=== PATIENT | female | born 1995 | race Caucasian/White ===

== ENCOUNTER → 2024-06-18 07:40 | Outpatient (REF) | payer BC, SELFPAY | LOC: PNTC 07:40 | PROVIDERS: ATTENDING PHYSICIAN Obstetrics & Gynecology | DX: Z36.0 Encounter for antenatal screening for chromosomal anomalies (principal); Z36.82 Encounter for antenatal screening for nuchal translucency; O09.811 Supervision of pregnancy resulting from assisted reproductive technology, first trimester | CPT/HCPCS: 76801; 76813 ==

== ENCOUNTER → 2024-10-10 08:49 | Outpatient (REF) | payer BC, SELFPAY | LOC: PNTC 08:49 | PROVIDERS: ATTENDING PHYSICIAN Obstetrics & Gynecology | DX: Z34.90 Encounter for supervision of normal pregnancy, unspecified, unspecified trimester (principal) | CPT/HCPCS: 36415; 86850; 86900; 86901; 96372; J2790 ==

== ENCOUNTER → 2024-12-04 13:21 | Outpatient (REF) | payer BC, SELFPAY | LOC: PNTC 13:21 | PROVIDERS: ATTENDING PHYSICIAN Student in an Organized Health Care Education/Training Program | DX: O09.819 Supervision of pregnancy resulting from assisted reproductive technology, unspecified trimester (principal) | CPT/HCPCS: 59025; 76815 ==

== ENCOUNTER → 2024-12-11 13:24 | Outpatient (REF) | payer BC, SELFPAY | LOC: PNTC 13:24 | PROVIDERS: ATTENDING PHYSICIAN Student in an Organized Health Care Education/Training Program | DX: O09.819 Supervision of pregnancy resulting from assisted reproductive technology, unspecified trimester (principal) | CPT/HCPCS: 59025; 76816 ==

== ENCOUNTER → 2024-12-18 14:18 | Outpatient (REF) | payer BC, SELFPAY | LOC: PNTC 14:18 | PROVIDERS: ATTENDING PHYSICIAN Student in an Organized Health Care Education/Training Program | DX: O09.819 Supervision of pregnancy resulting from assisted reproductive technology, unspecified trimester (principal) | CPT/HCPCS: 59025; 76815 ==

== ENCOUNTER → 2024-12-25 13:49 | Outpatient (REF) | payer BC, SELFPAY | LOC: PNTC 13:49 | PROVIDERS: ATTENDING PHYSICIAN Student in an Organized Health Care Education/Training Program | DX: O09.819 Supervision of pregnancy resulting from assisted reproductive technology, unspecified trimester (principal) | CPT/HCPCS: 59025; 76815 ==

== ENCOUNTER 2024-12-26 19:21 | Inpatient (IN) | payer BC, SELFPAY ==
[2024-12-26 19:50] VITALS: BP 131/88; BMI 32.0
[2024-12-26] MEDS: CYTOTEC 25 MICROGRAM VAG (20:18)
[2024-12-26 20:20] LABS: Hematocrit 31.2 % (37.0-47.0); Hemoglobin 10.7 g/dL (12.0-16.0); Mean Corp Hgb Conc. 34.3 g/dL (33.0-37.0); Mean Corpuscular Volume 90.4 fL (81.0-99.0); Nucleated Red Blood Cells % 0 %; Platelet Count 253 10^3/uL (130-400); Red Cell Dist. Width 13.9 % (11.5-14.5)
[2024-12-26] MEDS: LR 1000 IV (20:40)
[2024-12-27] MEDS: CYTOTEC PO (00:30)
[2024-12-27] MEDS: CYTOTEC 50 MICROGRAM PO (03:39)
[2024-12-27] MEDS: STADOL 1 MG IV ×2 (10:39→21:55)
[2024-12-27] MEDS: PITOCIN 30 UNITS/NSS 500 ML IV (13:19)
[2024-12-27] MEDS: LR 1000 IV (21:55)
[2024-12-28] MEDS: LR 1000 IV (21:12)
[2024-12-28] MEDS: PITOCIN 30 UNITS/NSS 500 ML IV (21:12)
[2024-12-29] MEDS: LR 1000 IV (11:54)
[2024-12-29] MEDS: FENTANYL/BUPIVACAINE 100 EPIDURAL ×2 (12:02→19:53)
[2024-12-29] MEDS: SUBLIMAZE 100 MCG EPIDURAL (12:02)
[2024-12-29] MEDS: TUMS CHEWABLE TABLET 400 MG PO (20:48)
[2024-12-30] MEDS: LR 1000 IV (00:30)
[2024-12-30] MEDS: FENTANYL/BUPIVACAINE 100 EPIDURAL ×2 (05:34→13:28)
[2024-12-30] MEDS: ZITHROMAX INFUSION 250 IV (15:37)
[2024-12-30] MEDS: BICITRA 30 ML PO ×2 (15:38)
[2024-12-30] MEDS: TYLENOL 1000 MG PO (15:38)
[2024-12-30] MEDS: ANCEF 10 IV ×2 (15:38→15:48)
[2024-12-30 16:46] LABS: Cord VBG B.E. - POC -2.5 mmol/L; Cord VBG HCO3 - POC 22 mmol/L; Cord VBG O2 Sat % - POC 42.1 %; Cord VBG pCO2 - POC 35 mmHg; Cord VBG pH - POC 7.40; Cord VBG pO2 - POC 24 mmHg
--- NOTE | 2024-12-30 17:36 | HPS.HSE ---
Family Physician
-
Family Physician: Danny Laureano
Chief Complaint
-
induction of labor
History of Present Illness
HPI: Patient is a 29yo @40.2 who presents for eIOL. She has no complaints. She denies ctx, VB or LOF. +FM
complications
- Rh negative
- IVF
PMHx: endometriosis
Meds: bASA, iron
Surghx: D&C, IVF
NKDA
Socialhx: denies tobacco, etoh or illicit drug use
Famhx: MGM lung cancer
OBHx: SABx1
labs: Aneg, Ab neg, RPR non-reactive, UCx neg, HBsAg neg, HIV neg, GCCT neg, Rubella immune, Hep C neg, 1hr 84, GBS neg
Medical History
Past Medical History
Past Medical History: Reports None
Past Surgical History: Reports Other
Social History
Tobacco: Non-smoker
Alcohol: None
Drug: None
Family History
Family History: Not pertinent
Allergies / Home Medications
Allergies reflects when Allergies were last updated in [employer]
Home Medications with original date entered in [employer]
Allergy/Medication List:
Meds: bASA, PNV
NKDA
Review of Systems
-
A 12 point ROS was completed and negative except as noted: Yes
Physical Exam
Vital Signs
Vital Signs
Temp Pulse Resp BP
98.0 F 95 18 131/88
12/26/24 19:50 12/26/24 19:50 12/26/24 19:50 12/26/24 19:50
Physical Exam
General: Well Developed and Well Nourished
HEENT: NormoCephalic
Respiratory: Non Labored Respirations
Cardiac: Regular Rhythm
Neuro: Awake and Alert
Psych: Calm
Laboratory Results
-
12/26/24 20:10
Impression/Plan
-
IMPRESSION:
Patient is a 29yo @40.5 who presented for elective IOL
PLAN:
- Cytotec 25mcg placed PV. 50mcg PO to be given q4h for a max of 6 doses. IOL process reviewed with patient and her
- cEFM/toco. Category 1 tracing on admission
--- NOTE | 2024-12-30 17:53 | OR.RPT ---
Operative Report
Operative Report
Procedure date: 12/30/2024
Preop diagnosis: IUP @40.2, IVF , non-reassuring heart tones
Postop diagnosis: same, endometriosis
Procedure: Primary low transverse section
Surgeon: Richy
Anesthesia: epidural, Bard
QBL: 1105mL
Findings: Viable male infant born at 1720, Apgars 8/9, Double nuchal, normal appearing uterus and bilateral fallopian tubes. Left ovary enlarged with endometrial implants and adherent to posterior uterus. Endometrial implants on the posterior
uterus. TXA given prophylactically prior to incision since patient has had a prolonged induction with high risk of hemorrhage
Montaño draining clear urine prior the procedure, blood tinged after delivery of the head and then clear at the end of the procedure
Complications: none
Indication: Patient is a 29yo who presented at 39.5 weeks on 12/26 for elective induction of labor. She was cl/50/-3. The induction was started with 25mcg of Cytotec placed vaginally. On the evening of 12/26, she had a prolonged deceleration.
She ultimately received one more dose of Cytotec. On the morning of 12/27, she was 1cm and blayne too much for Cytotec. A cook balloon was placed. There was another prolonged deceleration and the Cook balloon was removed. She was then started on
Pitocin. There were multiple discussions had with patient and her that while there have been decelerations, they are very far apart and the tracing was overall reassuring so it was okay to proceed with the induction process. She progressed
to 2-3cm on 12/28 but the head was not well applied and AROM was not able to be performed. She was offered to place another Cook balloon, but declined because they were worried about decelerations. On the night of 12/28, there was a Pitocin break. The
morning of 12/29, she progressed to 3cm. There was not a part palpable and ultrasound was performed and confirmed cephalic presentation. She was continued on Pitocin and got an epidural. After epidural placement, the head was well applied and
AROM was performed for clear fluid. Pitocin was turned on and off throughout the night of 12/29 for variable and late decelerations but the tracing was overall reassuring. In the morning of 12/30, she progressed to 8-9cm. She then progressed to an
anterior lip. There was another prolonged deceleration followed by variable decelerations and Pitocin was turned off. When Pitocin was turned back on, there was another prolonged deceleration and she remained an anterior lip. section was
recommend for non-reassuring heart tones. Consents were signed and anesthesia was notified.
Procedure: Patient was taken to the operating room where epidural anesthesia was bolused and found to be adequate. 2g of Ancef and 500mg of Azithromycin were given for antibiotic prophylaxis. 1g of TXA was given prophylactically given her high risk
of hemorrhage from multiple day induction. The abdomen was prepped with ChloraPrep. The patient was draped in the normal sterile fashion. She was placed in the dorsal supine position with a left lateral tilt. A Pfannenstiel incision was made with a
10 blade and carried down to the fascia with a scalpel. Hemostasis achieved with Bovie. The fascia was incised and dissected laterally with Rodriguez scissors. The superior aspect of the fascia was grasped with Cathleen clamps. The underlying rectus fascia
was sharply dissected with Rodriguez scissors. In a similar fashion the inferior aspect of the fascia was elevated with Cathleen clamps and the rectus muscle was dissected off with Rodriguez scissors. The rectus muscles were down the midline to the
level of the pubic symphysis with manual dissection. The peritoneum was bluntly entered and extended using manual traction and Rodriguez scissors.
Miranda retractor and bladder blade were placed revealing good visualization of the bladder. The vesicouterine peritoneum was identified. A very thin lower uterine segment was noted. The lower uterine segment was incised with a scalpel. Clear
amniotic fluid at entry into the uterine cavity. The uterine incision was extended bluntly with lateral and upward traction.
The fetus was in cephalic presentation. The head was elevated out of the pelvis with special attention paid to avoid using the uterine incision as a fulcrum. Gentle fundal pressure was applied once the head was brought to the incision. The head
delivered through the hysterotomy. The rest of the delivered without difficulty. Delayed cord clamping was not performed per neonatology. The infant was handed off to the mash preparatory operator. IV oxytocin was started to facilitate uterine
contractions. The placenta was manually extracted. The uterus was exteriorized. Fundal massage was performed and the uterus was firm. Allis clamps were placed at the apices of the hysterotomy. The inside of the uterus was wiped with a lap sponge to
assure complete removal of placental membranes. The uterine incision was closed with 0 Vicryl in a running locked fashion. A horizontal imbricating stitch was done on the hysterotomy with 0 Vicryl. The hysterotomy was inspected and there was oozing
at the left corner. Figure of eights with 2-0 were used to achieve hemostasis. Bovie cautery was used on small oozing areas of the serosa. The uterus was placed back in the abdomen. Blood clots and fluid were wiped out of the abdomen and pelvis with
moist laparotomy sponges. The hysterotomy was examined and was hemostatic.
The rectus muscles were inspected and were hemostatic. The fascial layer was closed in a running continuous fashion using 0 Vicryl. The subcutaneous tissue was copiously irrigated and any small bleeding vessels were cauterized with Bovie cautery.
The subcutaneous tissue was not reapproximated with 2-0 Plain in a running continuous fashion. The skin was closed with 4-0 Vicryl in a subcuticular fashion and covered with skin glue and a pressure dressing. The patient tolerated the procedure
well. All sponge and instrument counts were correct times two. The patient was taken to the recovery room in stable condition. Montaño catheter was draining blood tinged urine after delivery of the head and clear urine at the end of the procedure.
[2024-12-30] MEDS: TORADOL 15 MG IV ×2 (18:51→23:53)
[2024-12-30] MEDS: PITOCIN 30 UNITS/NSS 500 ML IV (19:51)
[2024-12-30] MEDS: COLACE 100 MG PO (21:05)
[2024-12-30] MEDS: FLUSH (NSS) 1 FLUSH IV (23:54)
[2024-12-31] MEDS: FLUSH (NSS) 1 FLUSH IV (05:26)
[2024-12-31] MEDS: TORADOL 15 MG IV ×2 (05:26→12:00)
[2024-12-31 06:14] LABS: Hematocrit 21.6 % (37.0-47.0); Hemoglobin 7.5 g/dL (12.0-16.0); Mean Corp Hgb Conc. 34.7 g/dL (33.0-37.0); Mean Corpuscular Volume 90.4 fL (81.0-99.0); Platelet Count 170 10^3/uL (130-400); Red Cell Dist. Width 13.4 % (11.5-14.5)
--- NOTE | 2024-12-31 07:31 | W.PN.ANS.POP ---
Anesthesia Post Operative
- Anesthesia Post Op Note
Vital Signs Stable-See Nursing Note: Yes
Airway Patent: Yes
Adequate Pain Control: Yes
Change in Mental Status: No
Current Postoperative Nausea & Vomiting: No
Anesthesia Complications: No
General Anesthetic Recall: No
Unplanned Admission: No
Post Op Hydration Adequate: Yes
[2024-12-31 08:22] LABS: Cord ABG B.E. - POC -2.9 mmol/L; Cord ABG HCO3 - POC 25 mmol/L; Cord ABG pCO2 - POC 55 mmHg; Cord ABG pH - POC 7.27; Cord ABG pO2 - POC < 18 mmHg
[2024-12-31] MEDS: PRENATAL PLUS 1 TABLET PO (08:40)
[2024-12-31] MEDS: COLACE 100 MG PO ×2 (08:40→21:40)
[2024-12-31] MEDS: FERRLECIT 110 MG IV (14:37)
[2024-12-31] MEDS: RHOGAM 300 MCG IM (16:22)
[2024-12-31] MEDS: TYLENOL 650 MG PO ×2 (17:24→21:40)
[2024-12-31] MEDS: MOTRIN 600 MG PO (21:40)
[2025-01-01] MEDS: MOTRIN 600 MG PO ×3 (03:48→18:27)
[2025-01-01] MEDS: TYLENOL 650 MG PO ×4 (03:49→20:59)
[2025-01-01] MEDS: PRENATAL PLUS 1 TABLET PO (07:59)
[2025-01-01] MEDS: COLACE 100 MG PO ×2 (07:59→20:58)
[2025-01-01 09:07] LABS: Hematocrit 23.3 % (37.0-47.0); Hemoglobin 7.8 g/dL (12.0-16.0); Mean Corp Hgb Conc. 33.5 g/dL (33.0-37.0); Mean Corpuscular Volume 93.6 fL (81.0-99.0); Platelet Count 209 10^3/uL (130-400); Red Cell Dist. Width 13.9 % (11.5-14.5)
[2025-01-01] MEDS: FEOSOL 325 MG PO (11:02)
[2025-01-01 14:03] LABS: Syphilis/T. pallidum Ab Reflex Negative (Negative)
[2025-01-02] MEDS: MOTRIN 600 MG PO ×2 (00:41→07:47)
[2025-01-02] MEDS: TYLENOL 650 MG PO ×2 (01:16→07:46)
[2025-01-02] MEDS: PRENATAL PLUS 1 TABLET PO (07:36)
[2025-01-02] MEDS: COLACE 100 MG PO (07:36)
[2025-01-02] MEDS: FEOSOL 325 MG PO (07:36)
--- NOTE | 2025-01-02 10:13 | CM ---
CM consulted for PPD
Bedside meeting with mother and father
Emotional support and PP provider list provided
father works from home and will be paternity leave for next 6 weeks
mother and father have good system and network
No further CM needs at this time
== END 2025-01-02 12:11 | disposition home or self-care (01) | DRG 788 ==
LOC: LDRP 19:21
PROVIDERS: Obstetrics & Gynecology; ADMITTING PHYSICIAN Student in an Organized Health Care Education/Training Program; FAMILY PHYSICIAN Family Medicine
PROC: 3E0P7VZ Introduction of Hormone into Female Reproductive, Via Natural or Artificial Opening (ICD-10-PCS; 2024-12-26)
PROC: 3E033VJ Introduction of Other Hormone into Peripheral Vein, Percutaneous Approach (ICD-10-PCS; 2024-12-27)
PROC: 3E0DXGC Introduction of Other Therapeutic Substance into Mouth and Pharynx, External Approach (ICD-10-PCS; 2024-12-27)
PROC: 0U7C7DJ Dilation of Cervix with Intraluminal Device, Temporary, Via Natural or Artificial Opening (ICD-10-PCS; 2024-12-27)
PROC: 10907ZC Drainage of Amniotic Fluid, Therapeutic from Products of Conception, Via Natural or Artificial Opening (ICD-10-PCS; 2024-12-29)
PROC: 10D00Z1 Extraction of Products of Conception, Low, Open Approach (ICD-10-PCS; 2024-12-30)
PROC: 3E0234Z Introduction of Serum, Toxoid and Vaccine into Muscle, Percutaneous Approach (ICD-10-PCS; 2024-12-31)
DX: O69.1XX0 Labor and delivery complicated by cord around neck, with compression, not applicable or unspecified (principal); Z3A.39 39 weeks gestation of pregnancy; Z37.0 Single live birth; O61.1 Failed instrumental induction of labor; O61.0 Failed medical induction of labor; O76 Abnormality in fetal heart rate and rhythm complicating labor and delivery; N80.00 Endometriosis of the uterus, unspecified; N80.102 Endometriosis of left ovary, unspecified depth; N73.6 Female pelvic peritoneal adhesions (postinfective); O99.02 Anemia complicating childbirth; D64.9 Anemia, unspecified; Z79.82 Long term (current) use of aspirin; Z80.1 Family history of malignant neoplasm of trachea, bronchus and lung
CPT/HCPCS: 36415; 85025; 85027; 85461; 86780; 86850; 86870; 86900; 86901; J2790; J2916